=== PATIENT | male | born 1950 | race Caucasian/White ===

== ENCOUNTER 2017-12-13 06:55 | Inpatient (IN) | payer BC, MEDICARE ==
--- NOTE | 2017-11-29 16:16 | NUR ---
PATIENT HERE TODAY FOR PREADMISSION APPOINTMENT. HE IS SCHEDULED FOR A RIGHT TOTAL KNEE REPLACEMENT ON 12/13/17. HE STATES HE HAD A LEFT TOTAL KNEE REPLACMENT A YEAR OR SO AGO. HE HAS EVERYTHING AT HOME FROM HIS LAST SURGERY SUCH A WALKER AND SHOWER BENCH. HE HAS NOT HAD A PREOP PHYSICAL THERAPY APPOINTMENT AT THIS TIME BUT WILL CHECK INTO IT. HE HAS FOUR STEPS INTO HIS HOME AND 15 STEPS INSIDE THE HOME GOING UP TO THE LIVING AREA. HIS WILL BE HERE TO TRANSPORT HIM HOME AND TO APPOINTMENTS. THIS INFORMATION WILL BE SENT TO DR HINTON OFFICE AND FRANCISCO PLANNING FOR FURTHER FOLLOW UP.
[~2017-12-13] VITALS: Ht 175.3 cm; Wt 92.1 kg
[~2017-12-13 06:55] MED LIST: HYDROCODON-ACE1 EA11 PO; LOSARTAN-HCTZ1 EACH PO; MILK THISTLE150 MG PO; MULTIVITAMINS1 EAC8 PO; NAPROXEN500 MG PO; NORCO 7.5-3251 EACH PO; OMEGA 3 FISH O1 EACH PO; OXYCODONE HCL5 MG PO; VITAMIN D2000 UNI1 PO
--- NOTE | 2017-12-13 12:30 | NUR ---
PT ARRIVED FROM PACU. REPORT TAKEN FROM ROSALIA HUGHES. PT HERE FOR RIGHT TKA. DRESSING CDI, CRYO CUFF, HEAL PROTECTORS, ANGEL HOSE, AND SCD'S IN PLACE. PT AWAKE AND RESPONDING APPROPRIATLY TO QUESTIONS. PT DRIFTS OFF TO SLEEP EASILY BUT AWAKENS TO VOICE. CONTINIOUS PULSE OX IN PLACE. PT ON 2L O2 NC R/T O2 SATURATION DROPPING TO 86% WHILE SLEEPING. PT TOLERATING SIPS OF WATER, DENIES NAUSEA, PT DOES NOT WANT ANY THING TO EAT AT THIS TIME. VITALS TAKEN. ASSESSMENT DONE. AT BEDSIDE. BED RAILS UP. CALL LIGHT WITHIN REACH.
--- NOTE | 2017-12-13 13:31 | NUR ---
MD AT BEDSIDE FOR CONSULT. THIS RN PRESENT FOR ROUNDS. NO ORDERS AT THIS TIME.
--- NOTE | 2017-12-13 14:10 | NUR ---
THIS DRILLING CONTRACTOR NOTICED THE PATIENTS CONTINUOUS PULSE OX ALARMING DUE TO HIS OXYGEN LEVEL AT 77% AND ABOVE. PATIENT'S FACE STARTED LOOKING DUSKY. THIS DRILLING CONTRACTOR WOKE THE PATIENT UP AND HAD HIM TAKE SOME DEEP BREATHS. THIS DRILLING CONTRACTOR PUT THE PATIENTS HEAD OF BED UP. PATIENTS O2 LEVEL WENT UP TO 100% WHILE AWAKE. RN NOTIFIED AT TO ROOM.
--- NOTE | 2017-12-13 14:12 | NUR ---
STAFFING OPERATIONS MANAGER NOTIFED THIS RN THAT PTS PULSE OX IS DROPPING TO LOW 80'S AND ALARMING WHILE PT IS SLEEPING. THIS RN TO BEDSIDE. PT AT 100% WHEN AWAKE BUT DROPS TO 86% WHILE SLEEPING. RT CALLED TO EVALUATE FOR CPAP. PT UPDATED ON PLAN OF CARE AND IS AGREEABLE. VITALS TAKEN. MEDICATIONS GIVEN ORDERED (SEE MAR). PT WORKING WITH RT. BED RAILS UP. CALL LIGHT WITHIN REACH. CRYO CUFF IN PLACE. DRESSING CDI, SCD'S ON.
--- NOTE | 2017-12-13 15:25 | NUR ---
VITALS DUE. THIS RN TO BEDSIDE. PT RESTING WITH EYES CLOSED, BIPAP IN PLACE. AT BEDSIDE. VITALS TAKEN, HR NOTED TO BE 44-46 BPM. MD CALLED. MD STATES SHE WILL BE DOWN TO VISITING WITH PT. THIS RN REMAINS AT BEDSIDE, PT AWAKE AND TALKING WITH CASE MANAGEMENT. HR 44-54 BMP. MD ARRIVED TO BEDSIDE AT 1528. NO ORDERS AT THIS TIME. BED RAILS UP. CALL LIGHT WITHIN REACH.
--- NOTE | 2017-12-13 16:02 | OR ---
[facility] [address] [place], [place] [address] Signed DATE OF OPERATION: 12/13/2017 SURGEON: Elaine Tuttle MD PREOPERATIVE DIAGNOSIS: Degenerative joint disease, right knee. POSTOPERATIVE DIAGNOSIS: Degenerative joint disease, right knee. PROCEDURE PERFORMED: Right total knee arthroplasty with computer navigation. CERAMIC SAW TENDER: Dinora Tejeda MS4. ANESTHESIA: Spinal. BLOOD LOSS: Minimal. TOURNIQUET TIME: 58 minutes. IMPLANTS: Genoveva Triathlon size 5 femur, size 5 tibia, 13 mm insert, and 38 mm patella. BRIEF HISTORY: Scott is a 67-year-old gentleman with pain and grinding in both knees. He had undergone nonoperative treatment without substantial relief. Risks, benefits, and alternatives of operative treatment were discussed with him and he elected to proceed. DESCRIPTION OF PROCEDURE: Once consent was obtained, he was taken to the operating room. After adequate anesthesia, he was placed on operating room table and all downside pressure points well padded. The right knee was placed on a hip bump, placed in well-padded proximal thigh tourniquet. The leg was then prepped and draped in standard sterile fashion and exsanguinated using Esmarch bandage. Tourniquet inflated to 250 mmHg. Standard anteroposterior curved incision was taken through the skin and subcutaneous tissue. The Electronically Signed By: ELAINE TUTTLE MD 12/13/17 1602 PATIENT NAME: SCOTT SANTO OPERATIVE REPORT DATE OF : 54 REPORT #: [id number] PHYSICIAN: ELAINE TUTTLE MD PCP: RENE DAVIDSON PAC REPORT IS CONFIDENTIAL AND NOT TO BE RELEASED WITHOUT AUTHORIZATION [facility] [address] [place], [place] [address] Signed median parapatellar arthrotomy was performed. The infrapatellar fat pad was excised. The MCL was elevated of a sleeve around the posterior medial corner. The knee was flexed. The anterior horns of the menisci were transected. The ACL was transected. PCL was found to be intact. The navigation guide was pinned to the distal femur. The femur was registered with the computer. The distal femoral cutting block was then pinned in neutral alignment and the distal femoral cut was made. The bone was excised. The distal femur was then sized to a 5 and the 5 AP cutting block was then pinned in alignment with epicondylar axis. The anterior, posterior, and chamfer cuts were made. The osteophytes were removed as we went. The attention was turned to the proximal tibia. The navigation guide was pinned to the tibia. The tibia was registered with the computer. The cutting block was pinned in neutral alignment and set to take 1 mm off the most involved posteromedial corner. The cut was made with care taken to protect the patellar tendon and MCL. The bone was excised as were any meniscal remnants. Posterior release performed off the femur. Posterior osteophytes removed. Flexion and extension gaps were sized and found to be symmetric at 13 mm. The trials were positioned. Knee was taken through range of motion and found to be stable. Finch test was negative. The patella was cut, sized, and drilled for a 38 patella. The knee was flexed. The distal femoral drill holes were placed. The proximal tibia was finished using the keel punch. The trials were removed. The bone surfaces were pulse lavaged, packed with dry Ray-Sona. Cement was mixed. When it reached proper consistency, it was placed in all bone surfaces and all implants. Tibia was impacted in position first followed by the femur. All excess cement was removed. The polyethylene was snapped into position and the knee was extended and nicely loaded. The patella was clamped and again any remaining excess was removed. The cement was allowed to harden. Once hardened sufficiently, the knee was flexed and the remaining cement was removed using osteotomes. The knee was pulse lavaged at intervals throughout the procedure. A total of 3 L antibiotic irrigation was used. The periarticular soft tissues were injected with 100 mL ropivacaine and Toradol mixture. The arthrotomy was then closed using a #2 Stratafix, 0 Stratafix for subcutaneous tissue, and henrietta for the skin. The knee was dressed with a Mepilex, Ag dressing, ABD, and Kash wrap. He tolerated the procedure well. All sponge, needle, and instrument counts were correct. Elaine Tuttle MD BA/MODL /[id number] Electronically Signed By: ELAINE TUTTLE MD 12/13/17 1602 PATIENT NAME: SCOTT SANTO OPERATIVE REPORT DATE OF : 54 REPORT #: [id number] PHYSICIAN: ELAINE TUTTLE MD PCP: RENE DAVIDSON [facility] REPORT IS CONFIDENTIAL AND NOT TO BE RELEASED WITHOUT AUTHORIZATION [address] [address] Signed Copies: ~ Electronically Signed By: ELAINE TUTTLE MD 12/13/17 1602 PATIENT NAME: SCOTT SANTON OPERATIVE REPORT DATE OF : 54 REPORT #: [id number] PHYSICIAN: ELAINE TUTTLE MD PCP: RENE DAVIDSON PAC REPORT IS CONFIDENTIAL AND NOT TO BE RELEASED WITHOUT AUTHORIZATION
--- NOTE | 2017-12-13 16:15 | NUR ---
THIS RN TO BEDSIDE TO ASSIST PHYSICAL THERAPY. PT UP WITH WALKER TO STAND ON THE EDGE OF BED. PT REPORTS DIZZINESS WITH STANDING. PULSE OX PLACED. PT O2 SAT AT 88%. O2 BY NC AT 2L PLACED. O2 SATURATION UP TO 96%. PT ATTEMPTS TO VOID. UNABLE TO DO SO. BLADDER SCAN DONE AND FINDS 425ML. PT ADVISED THAT HE CAN TRY AGAIN IN 2 HOUR. PLAN OF ACTION EXPLAINED TO PT AND . PT AND VERBALIZE UNDERSTANDING. ASSESSMENT DONE. PT READY TO TRY FOOD. PT TOLERATING PO PUDDING WITH NO NAUSEA. PT ORDERING DINNER WITH MENU. PT BACK TO BED. BED RAILS UP. CALL LIGHT WITHIN REACH. BIPAP MACHINE WITHIN REACH AND PT VERBALIZES UNDERSTANDING TO CALL RN IF HE WOULD LIKE TO NAP AGAIN. SCD'S AND CRYO CUFF IN PLACE.
--- NOTE | 2017-12-13 17:52 | NUR ---
MEDICATIONS DUE. THIS RN TO BEDSIDE. PT WATCHING TV. NO REQUESTS OR COMPLAINTS. MEDICATIONS GIVEN ORDERED. PT ATTEMTS TO VOID AGAIN WITH NO RESULTS. BLADDER SCAN YEILDS 493ML. PT WOULD LIKE TO TRY VOIDING AGAIN IN A 1/2 HOUR. BED RAILS UP. CALL LIGTH WITHIN REACH. SCD'S AND CRYO CUFF ON.
--- NOTE | 2017-12-13 18:31 | NUR ---
PATIENT RESTING IN BED, BIPAP ON. FAMILY IN ROOM. CRYO STILL FULL. CALL LIGHT IN REACH. NO OTHER NEEDS AT THIS TIME.
--- NOTE | 2017-12-13 18:44 | NUR ---
PT CALL LIGHT ON. PT WOULD LIKE TO ATTEMPT TO VOID. PYROTECHNICS PRESS TENDER HELPS PT UP TO EDGE OF BED. PT UNABLE TO VOID. BLADDER SCAN SHOWS 543ML. DAVIS PLACED PER PROTOCOL. DRAINING TO GRAVITY. 475ML REMOVED FROM DAVIS BAG AT THIS TIME. PT STATES "THAT WASN'T BAD AT ALL." SCD'S, AND CRYO CUFF IN PLACE. BIPAP MASK PLACED BY PT WITH HELP FROM THIS RN. PT PLANS TO NAP AT THIS TIME. BED RAILS UP. CALL LIGHT WITHIN REACH.
--- NOTE | 2017-12-13 19:13 | NUR ---
PUMP ALARMING, INFUSION COMPLETE. PIV SALINE LOCKED PER ORDER. PT RESTING WITH EYES CLOSED. RR = 16BPM. AT BEDSIDE. CALL LIGHT WITHIN REACH. BED RAILS UP.
--- NOTE | 2017-12-13 19:17 | NUR ---
PATIENT HAS HAD NO OUTPUT. RN NOTIFIED. RN TO PUT IN DAVIS.
--- NOTE | 2017-12-13 19:48 | NUR ---
BEDSIDE REPORT RECEIVED FROM SAUL REYEZ. PT AWAKE, LYING IN BED, DAVIS CATHETER DRAINING. RT AZUL IN ROOM. PT OFF BIPAP AT THIS TIME TO ALLOW FOR BREAK, ON 2L OXYGEN BY NC SPO2 95%, HR 70. PT DENIES PAIN, DENIES NAUSEA. GIVEN ICE WATER. AT BEDSIDE. DRESSING RIGHT KNEE CDI, TEDHOSE, SCDS, HEEL PROTECTORS ON. CRYO CUFF ON RIGHT KNEE WITH ICE. IV SALINE LOCKED. CALL LIGHT IN REACH.
--- NOTE | 2017-12-13 19:50 | NUR ---
PT HERE FOR RIGHT TKA. 1 PERSON ASSIST, FWW. PHYSICAL THERAPY HELPED PT TO STAND WITH FWW TODAY. TOLERATING REGULAR DIET. UNABLE TO VOID BY 1800, DAVIS PLACED. DRAINING TO GRAVITY. APNIC SPELLS PRESENT WITH SLEEPING. RT INVOLVED. PT USING BIPAP WHILE SLEEPING/NAPPING. PIV IN LEFT HAND, SL. SPINAL RESOLVED. PT DENIES PAIN AND NAUSEA AT THIS TIME. AT BEDSIDE. PT USING CALL LIGHT APPROPRIATLY.
--- NOTE | 2017-12-13 21:40 | NUR ---
PT ASSESSMENT COMPLETE, PT CONTINUES TO DENY ANY PAIN, SENSATION INTACT BLE, CAP REFILL <3 BLE, PEDAL PULSES STRONG BILATERALLY. LUNGS CLEAR THROUGHOUT ALL LOBES, PT ABLE TO DEMONSTRATE IS USE WITH 2500 ML MAX EFFORT, EDUCATION PROVIDED. SCDS, ANGEL HOSE, HEEL PROTECTORS, CRYO CUFF IN PLACE, ICE IN CRYO CUFF. BOWEL TONES ARE ACTIVE X 4. PT TOLERATING REGULAR DIET, DENIES NAUSEA. PT ON 2L OXYGEN BY NC, STATES THAT HE'S TIRED. RT AZUL IN ROOM AT THIS TIME TO APPLY BIPAP. IV SALINE LOCKED. DAVIS CATHETER DRAINING. PT HAS NO REQUESTS AT THIS TIME. CALL LIGHT IN REACH.
--- NOTE | 2017-12-14 00:37 | NUR ---
CHECKED ON PT, PT APPEARS TO BE SLEEPING, EYES CLOSED, VISIBLE CHEST RISE, SPO2 96% ON BIPAP AT THIS TIME, HR 60. SCDS, HEEL PROTECTORS, CRYO CUFF IN PLACE. LIGHTS OFF IN ROOM.
--- NOTE | 2017-12-14 01:40 | NUR ---
PT APPEARS TO BE SLEEPING, BIPAP ON, SPO2 98%, AWAKENS TO VOICE. PT ORIENTED X 3. DENIES PAIN, SENSATION INTACT BLE, PEDAL PULSES STRONG BILATERALLY, CAP REFILL <3 BLE, BUE. CRYO CUFF REFILLED WITH ICE AND ON RIGHT KNEE. LUNGS CLEAR THORUGHOUT ALL LOBES, HR REGULAR RHTYHM. PT DENIES PAIN. IV FLUSHED WNL, BLOOD RETURN. PT GIVEN DRINK OF ICE WATER, BIPAP BACK ON, LIGHTS OFF IN ROOM. DAVIS CATHETER EMPTIED AND VITALS COMPLETE WNL. CALL LIGHT IN REACH, BED ALARM SET PT HAS SOME CONFUSION UPON AWAKENING, REORIENTS ONCE AWAKE.
--- NOTE | 2017-12-14 01:45 | NUR ---
PATIENT WAS OFF FROM BIPAP WHEN V/S WAS TAKEN.
--- NOTE | 2017-12-14 01:47 | NUR ---
REFILLED CRY CUFF AND ICE WATER.
--- NOTE | 2017-12-14 04:14 | NUR ---
CHECKED ON PT, APPEARS TO BE SLEEPING, EYES CLOSED, VISIBLE CHEST RISE, SPO2 95% ON BIPAP, HR 53. BED ALARM ON, SCDS, HEEL PROTECTORS, CRYO CUFF IN PLACE.
--- NOTE | 2017-12-14 06:30 | NUR ---
SUSAN D/C'D AT THIS TIME WNL, PT TOLERATED WELL. CRYO CUFF ON RIGHT KNEE WITH ICE, SCDS ON, HEEL PROTECTORS, ANGEL HOSE. PT DENIES ANY PAIN. SCHEDULED TYLENOL ADMINISTERED. ICE WATER GIVEN TO PT. NO ADDL REQUESTS. ON 2L OXYGEN NC AT THIS TIME, SPO2 97%. CALL LIGHT IN REACH.
--- NOTE | 2017-12-14 06:55 | NUR ---
PT DENIES PAIN THROUGHOUT SHIFT. NO NAUSEA, TOLERATING REGULAR DIET WELL. DRESSING CDI THROUGHOUT SHIFT, CSM INTACT. CRYO CUFF, SCDS, HEEL PROTECTORS, ANGEL HOSE IN PLACE. SCHEDULED TYLENOL AND TORADOL. DAVIS D/C'D THIS AM. ON BIPAP THROUGHOUT SHIFT SATURATING WNL. BED ALARM IN PLACE.
--- NOTE | 2017-12-14 08:28 | NUR ---
PATIENT SITTING UP IN BED. FRESH ICE WATER. WASHCLOTH FOR FACE. CALL LIGHT WITHIN REACH. NO OTHER NEEDS AT THIS TIME.
--- NOTE | 2017-12-14 09:46 | NUR ---
PATIENT SITTING UP IN BED. FAMILY MEMBERS IN ROOM. RN IN ROOM.
--- NOTE | 2017-12-14 09:50 | NUR ---
MORNING MEDICATIONS AND ASSESSMENT DUE. THIS RN TO BEDSIDE. PT REPORTS /10 PAIN THAT "ISN'T THAT BAD." PAIN MEDICATION GIVEN IN ANTICIPATION OF PHYSICAL THERAPY. PT UPDATED ON PLAN OF CARE. ASSESSMENT DONE. MEDICATIONS GIVEN. EDUCATION R/T MEDICATIONS DONE. PT VERBALIZES UNDERSTANDING. CRYO CUFF IN PLACE. DRESSING CDI, SCD'S ON. PT STATES HE IS HOPING TO GO HOME TODAY IF PHYSICAL THERAPY GOES WELL. BED RAILS UP. CALL LIGHT WITHIN REACH. AT BEDSIDE.
--- NOTE | 2017-12-14 10:06 | NUR ---
MED REC COMPLETE
--- NOTE | 2017-12-14 10:53 | NUR ---
VEST PRESSER INFORMS THIS RN THAT SHE HELPED PT ATTEMPT TO VOID AND PT WAS UNABLE TO DO VOID AT THIS TIME. BLADDER SCAN YEILDS, 232ML. PT ENCOUARGED TO DRINK FLUIDS THIS MORNING. PT REPORTING 5/10 PAIN WITH AMBULATION BUT "BETTER WHEN I'M IN BED RESTING." PT UP WITH PHYSICAL THERAPY. O2 STATURATION 94% ON ROOM AIR. PT STATES HE HAS NO REQUESTS OR COMPLAINTS AT THIS TIME.
--- NOTE | 2017-12-14 11:02 | NUR ---
PT UP WITH PHYSICAL THERAPY. O2 SATURATION DROPS TO 89% ON ROOM AIR WITH AMBULATION. PORTIABLE OXYGEN TANK FOUND AND ATTACHED TO CHAIR. PT ON 1L O2 NC. MAINTAINING O2 SATUATIONS ABOVE 96%.
--- NOTE | 2017-12-14 11:05 | NUR ---
PATIENT ASSISTED TO THE RESTROOM. 1 PERSON WITH FWW. PATIENT TRIED TO VOID, BUT STATED HE DID NOT FEEL LIKE HE HAD TO. RN NOTIFIED. BLADDER SCANNED. RN IN ROOM AT TIME OF BLADDER SCAN. PATIENT AMBULATING WITH PTHERAPY NOW. PATIENT AMBULATED ONE LAP IN THE HALLWAY AND IS NOW IN THE THERAPY ROOM WITH PTHERAPY.
--- NOTE | 2017-12-14 11:21 | NUR ---
PATIENT SITTING UP IN CHAIR. FAMILY MEMBERS IN ROOM. CALL LIGHT WITHIN REACH. NO OTHER NEEDS AT THIS TIME.
--- NOTE | 2017-12-14 11:49 | NUR ---
PT RETURNED FROM PT. FOCUSSED ASSESSMENT DUE. THIS RN TO BEDSIDE. PT UP TO CHAIR EATING LUNCH. CRYO CUFF IN PLACE. FEET ELEVATED. PT ON 1L O2 NC. ASSESSMENT DONE. PT WEANED TO ROOM AIR. PT MAINTAINING O2 SATURATIONS ABOVE 92% ON ROOM AIR WHILE RESTING. PT REPORTS 5/10 PAIN THAT IS "JUST FINE." WATER REFILLED. CALL [facility] WITHIN REACH. PT STATES HE HAS NO REQUESTS OR COMPLAINTS AT THIS TIME.
--- NOTE | 2017-12-14 11:53 | NUR ---
PT UPRIGHT IN BED. HE IS ALERT, ORIENTED AND SUPPORTED BY HIS . HE HAS HAD THE OTHER KNEE REPLACED PREVIOUS, AND NOTED THAT THIS ONE IS DIFFERENT. WE VISITED HIS NOTED THAT HIS FACE BEGAN TO GROW RED, SHE STATED THAT THIS IS UNUSUAL FOR PT. I HAD THE RN COME AND CHECK ON HIM-WILL CONTINUE TO FOLLOW NEEDED
--- NOTE | 2017-12-14 13:19 | NUR ---
THIS RN TO BEDSIDE. PT REPORTING 6/10 PAIN. (SEE MAR FOR MEDICATION GIVEN). PT UP TO RESTROOM WITH ASSISTANCE. PT ABLE TO VOID 300 ML. PT BACK TO BED. CRYO CUFF IN PLACE. SCD'S ON. PULSE OX ON. CALL LIGHT WITHIN REACH. BEDRAILS UP.
--- NOTE | 2017-12-14 14:50 | NUR ---
MEDICATIONS DUE. THIS RN TO BEDSIDE. PT REPORTING 5/10 PAIN. SEE MAR FOR MEDICATIONS GIVEN. PT PLACING DINNER AND BREAKFAST ORDER WITH DIETARY. BED RAILS UP. CALL LIGHT WITH IN REACH. PULSE OX RECORDING 92-94 % ON ROOM AIR. CRYO CUFF IN PLACE. AT BEDSIDE.
--- NOTE | 2017-12-14 16:32 | NUR ---
AFTERNOON ASSESSMENT DUE. THIS RN TO BEDSIDE. PT JUST RETURNING FROM PT. DRESSING CDI. GOOD CMS. CRYO CUFF, SCD'S, PULSE OX REPLACED. PT REMAINS ON ROOM AIR, SATURATIONS 92-97%. PT STATES HE WOULD LIKE TO GO HOME IF POSSIBLE. ASSESSMENT DONE. PHYSICAL THERAPY CONSULTED. PHYSICAL THERAPIST STATES PT NEEDS TO STAY ONE MORE NIGHT TO PRACTICE EXERCISES. MD CALLED TO UPDATE. PT INFORMED THAT MD AND PHYSICAL THERAPY WOULD PREFER THAT HE STAY ONE MORE NIGHT. PT IS AGREABLE TO THIS PLAN. PT WATCHING TV AND WAITING FOR DINNER. NO REQUESTS OR COMPLAINTS AT THIS TIME. CALL LIGHT WITHIN REACH. BED RAILS UP.
--- NOTE | 2017-12-14 16:46 | NUR ---
PT HERE FOR RIGHT TKA. UP WITH PHYSICAL THERAPY X2 TODAY. RATING PAIN FROM 4-6. PO PRN OXY GIVEN. BIPAP NEEDED FOR SLEEP. O2 WHILE WORKING WITH PHYSICAL THERAPY THIS AM BUT NOT NEEDED THIS AFTERNOON. PT ABLE TO VOID, QUANTITY SUFFICIENT. DRESSING CDI. PLAN TO DISCHARGE TOMORROW. USING CALL LIGHT APPROPRIATELY.
--- NOTE | 2017-12-14 18:10 | NUR ---
THIS RN TO ROOM FOR PAIN MEDICATION AND RE-EVAULATION. PT RATES PAIN AT 5/10 AND WOULD LIKE PAIN MEDICATION. SEE MAR FOR MEDICAITON GIVEN. PT UPDATED ON PLAN OF CARE, QUESTIONS ASKED AND ANSWERED. PT WATCHING TV AND VISITING WITH . NO REQUESTS OR COMPLAINTS AT THIS TIME. BED RAILS UP. CALL LIGHT WITHIN REACH. PULSE OX, CRYO CUFF, SCDS ON.
--- NOTE | 2017-12-14 18:13 | NUR ---
PATIENT AMBULATED FROM BED TO BATHROOM. 1 PERSON SBA. PATIENT SITTING UP IN BED NOW. FAMILY MEMBER IN ROOM. RN IN ROOM. ICE IN CRYO. GARBAGE EMPTIED. FRESH ICE WATER. CALL LIGHT WITHIN REACH. NO OTHER NEEDS AT THIS TIME.
--- NOTE | 2017-12-14 19:30 | NUR ---
BEDSIDE REPORT RECEIVED FROM SAUL REYEZ. SBA TO RESTROOM FOR BM WITH FWW. PT KALI WELL. RATES PAIN 5/10, STATES TOLERABLE, "SORE". PT ON ROOM AIR AT THIS TIME, SATURATING WNL. INSTRUCTED TO USE CALL LIGHT WHEN FINISHED. DRESSING CDI.
--- NOTE | 2017-12-14 19:41 | NUR ---
CALL LIGHT ANSWERED, SBA WITH FWW FROM RESTROOM BACK TO BED, PT UNABLE TO HAVE BM, 450 ML VOID. SCDS, HEEL PROTECTORS, ANGEL HOSE, CRYO CUFF WITH ICE IN PLACE. CALL LIGHT IN REACH.
--- NOTE | 2017-12-14 21:21 | NUR ---
SBA FROM RESTROOM BACK TO BED WITH FWW. DRESSING CDI, CSM INTACT BUE, BLE. SCDS, CRYO CUFF REFILLED WITH ICE, ANGEL HOSE, HEEL PROTECTORS ON. PT RATES PAIN 6/10 AT THIS TIME "SORE". SCHEDULED TORADOL, TYLENOL ADMINISTERED. PT TO USE CALL LIGHT FOR INCREASING PAIN, DISCUSSED PRN PAIN MEDICATION AVAILABILITY. PT ON ROOM AIR, SPO2 95%. WATCHING BASKETBALL GAME. CALL LIGHT IN REACH, NO ADDL REQUESTS AT THIS TIME.
--- NOTE | 2017-12-14 21:54 | NUR ---
CRYO CUFF REFILLED.
--- NOTE | 2017-12-14 22:15 | NUR ---
RT NOTIFIED PT REQUESTING PRN PAIN MEDICATIONS, PT STATES PAIN IS 5/10 IN RIGHT KNEE, "SORE WHERE TOURNIQUET WAS". PRN OXYCODONE 10 MG ADMINISTERED PO. PT BACK ON BIPAP AT THIS TIME, WATCHING TV. CRYO CUFF, SCDS, ANGEL HOSE, HEEL PROTECTORS ON. NO ADDL REQUESTS. CALL LIGHT IN REACH.
--- NOTE | 2017-12-14 23:41 | NUR ---
PT APPEARS TO BE SLEEPING, EYES CLOSED, VISIBLE CHEST RISE. 95% SPO2 ON BIPAP. LIGHTS OFF IN ROOM, SCDS, HEEL PROTECTORS, CRYO CUFF IN PLACE.
--- NOTE | 2017-12-15 01:34 | NUR ---
CALL LIGHT ANSWERED, SBA WITH FWW TO RESTROOM FOR 350 ML VOID. BED NOTICED TO BE DEFLATED AT FOOT OF BED AND MALFUNCTIONING TO STAY INFLATED. PT GIVEN [facility] BED. INSTRUCTED TO KEEP KNEE STRAIGHT, NOT TO ELEVATE WITH PILLOWS, LOCKOUT OF FOOT OF BED IN PLACE. DRESSING CDI, CRYO CUFF REFILLED AND ON RIGHT KNEE, CSM INTACT BLE. PT RATES PAIN 5/10, STATES "HAS NOT CHANGED". SCHEDULED TORADOL ADMINISTERED AT THIS TIME WNL. LUNGS CLEAR THROUGHOUT ALL LOBES, PT ASSISTED TO REAPPLY BIPAP AT THIS TIME, SPO2 97%. CALL LIGHT IN REACH, LIGHTS OFF IN ROOM.
--- NOTE | 2017-12-15 03:04 | NUR ---
PT APPEARS TO BE SLEEPING, EYES CLOSED, BIPAP ON SATURATING 95%. VISIBLE CHEST RISE BILATERALLY. SCDS, HEEL PROTECTORS AND CRYO CUFF ON. LIGHTS OFF IN ROOM.
--- NOTE | 2017-12-15 04:00 | NUR ---
CALL LIGHT ANSWERED, BIPAP MACHINE ALARMING, RT AZUL IN ROOM TO ASSESS. SBA TO RESTROOM FOR VOID AND BACK TO BED WITH FWW. PT RATES PAIN 6/10 WITH AMBULATION IN RIGHT KNEE, PRN OXYCODONE 5 MG PO ADMINISTERED AT THIS TIME. CRYO CUFF WITH ICE TO RIGHT KNEE, ANGEL HOSE, SCDS, HEEL PROTECTORS IN PLACE. CSM INTACT BLE. ASSISTED PT TO REAPPLY BIPAP MASK. LIGHTS OFF IN ROOM, CALL LIGHT IN REACH.
--- NOTE | 2017-12-15 05:26 | NUR ---
BIPAP PLACED IN STANDBY AT THIS TIME, MATERNAL CHILD NURSE IN PT ROOM. PT STATES "I THINK THAT LAST PILL REALLY WORKED". RATES PAIN 5/10 AT THIS TIME. SCDS, HEEL PROTECTORS, ANGEL HOSE AND CRYO CUFF IN PLACE. SATURATING WNL ON ROOM AIR. CALL LIGHT IN REACH.
--- NOTE | 2017-12-15 05:48 | NUR ---
DRESSING CDI, CSM INTACT THROUGHOUT SHIFT. PT HAS HAD CRYO CUFF WITH ICE ON RIGHT KNEE, SCDS, ANGEL HOSE, AND HEEL PROTECTORS IN PLACE. SBA WITH FWW TO RESTROOM FOR QUANITY SUFFICIENT VOIDS. PAIN WELL CONTROLLED WITH PRN OXYCODONE, SCHEDULED TYLENOL AND TORADOL. USING BIPAP MACHINE W SLEEP, ROOM AIR OTHERWISE. [facility] BED THIS SHIFT FOOT OF BED MALFUNCTIONING, DEFLATING TO ALLOW RIGHT LEG TO BE STRAIGHT. IV SALINE LOCKED.
--- NOTE | 2017-12-15 07:39 | NUR ---
STUDENT NURSE IN ROOM, STANDBY ASSISTED PATIENT BACK TO BED. SCD'S ON, HEEL PROTECTORS ON, CRYO CUFF ON AND CHECKED FOR ICE. PATIENT DECLINED OFFER TO WASH HANDS AND FACE WITH WASH CLOTH. ORAL CARE AND WASH CLOTH SET UP IN BATHROOM FOR PATIENT USE AT A LATER TIME. PATIENT REFUSED BIPAP MACHINE. RN NOTIFIED. CALL LIGHT IN REACH. FRESH ICE WATER AT BEDSIDE TABLE. NO OTHER NEEDS AT THIS TIME.
--- NOTE | 2017-12-15 07:47 | NUR ---
BEDSIDE REPORT RECEIVED FROM DRU. PATIENT ASSISTED TO BATHROOM WITH FWW. PATIENT IS A&O. REPORTED PAIN AT 5/10. DRESSING ON RIGHT KNEE D/C/I WITH JOSHUA WRAP. PATIENT INTRUCTED TO CALL WHEN HE IS DONE IN THE BATHROOM.
[2017-12-15] MEDS ORDERED: XARELTO10 MG PO (08:28)
[2017-12-15] MEDS ORDERED: OXYCODONE HCL5 MG PO (08:28)
[2017-12-15] MEDS ORDERED: NEURONTIN300 MG PO (08:29)
[2017-12-15] MEDS ORDERED: MIRALAX17 GM PO (08:29)
--- NOTE | 2017-12-15 09:05 | NUR ---
PATIENT SITTING IN BED, AT BEDSIDE. PATIENT REPORTED 6/10 PAIN ON THE RIGHT KNEE.PATIENT WAS MEDICATED FOR PAIN. SHIFT ASSESSMENT DONE. DRESSING ON RIGHT KNEE REMOVED PER DR HINTON. INCISION C/D/I. ALL STAPPLES IN PLACE. NO DRAINAGE. PATIEN DENIES ANY NUMBNESS OR TINGLING IN THE LOWER EXTREMITIES. LUNGS CLEAR. MD PLAN TO DC PATIENT TODAY AFTER PHYSICAL THERAPY.
--- NOTE | 2017-12-15 09:19 | NUR ---
THIS CORPORATE ADMINISTRATOR ASSISTED RN WITH DRESSING CHANGE. PATIENT CRYO CUFF ON. CALL LIGHT IN REACH. FRESH ICE WATER AT BEDSIDE TABLE. PATIENT WASHED HANDS AND FACE WITH WASH CLOTH, REFUSED SHOWER AND BED BATH BECAUSE HE WOULD LIKE TO TAKE ONE AT HOME. PHARMACIST IN ROOM. NO OTHER NEEDS AT THIS TIME.
--- NOTE | 2017-12-15 10:01 | NUR ---
PATIENT UP WITH THERAPY. 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
--- NOTE | 2017-12-15 10:20 | NUR ---
PATIENT UP WALKING WITH PHYSICAL THERAPIST. TOLERATED WELL. PATIENT WAS MEDICATED FOR PAIN PRIOR TO PHYSICAL THERAPY.
--- NOTE | 2017-12-15 10:31 | NUR ---
PATIENT RESTING IN BED, WAITING FOR DISCHARGE INSTRUCTIONS. FRESH ICEWATER AT BEDSIDE TABLE, CRYO CHECKED, CALL LIGHT IN REACH. NO OTHER NEEDS AT THIS TIME.
--- NOTE | 2017-12-15 13:40 | NUR ---
PT DRESSED, LAYING ON BED WAITING FOR P.T.-THEN TO BE DC'D. PT STATED HE SLEPT BETTER LAST NIGHT. SEEMS TO HAVE POSITIVE ATTITUDE, EXTENDED A BLESSING, WILL FOLLOW NEEDED
--- NOTE | 2017-12-16 09:41 | NUR ---
FAXED CHART NOTES INCLUDING ORDER TO [facility] OP PT, INCLUDING FACESHEET, H AND P, PROG NOTES, PT EVAL AND NOTES, DC PACKET.
--- NOTE | 2017-12-16 09:50 | NUR ---
recieved fax confirmation THAT THIS WENT THROUGH. SPOKE WITH KINGS AT [facility] OP PT.
== END 2017-12-15 11:20 | disposition home or self-care (01) | DRG 470 ==
LOC: DS 06:55 → EDSTATUS 09:00 → MS 09:00 → DS 12:31 → MS 15:20
PROVIDERS: ADMIT Specialist
PROC: 8E0YXBZ Computer Assisted Procedure of Lower Extremity (ICD-10-PCS; 2017-12-13)
PROC: 3E0T3BZ Introduction of Anesthetic Agent into Peripheral Nerves and Plexi, Percutaneous Approach (ICD-10-PCS; 2017-12-13)
PROC: 3E0T33Z Introduction of Anti-inflammatory into Peripheral Nerves and Plexi, Percutaneous Approach (ICD-10-PCS; 2017-12-13)
PROC: 0SRC0J9 Replacement of Right Knee Joint with Synthetic Substitute, Cemented, Open Approach (ICD-10-PCS; principal; 2017-12-13 09:00)
DX: M17.11 Unilateral primary osteoarthritis, right knee (principal); I10 Essential (primary) hypertension; G89.18 Other acute postprocedural pain; Z79.899 Other long term (current) drug therapy; Z79.1 Long term (current) use of non-steroidal anti-inflammatories (NSAID); Z87.891 Personal history of nicotine dependence
CPT/HCPCS: 01402; 36415; 51798; 64447; 64450; 76942; 80048; 85025; 94660; 94762; 97110; 97116; 97161; C1713; C1776; G8978; G8979; J0690; J1100; J1885; J2250; J2274; J2300; J2704; J2765; J2795; J3010; J7120